=== PATIENT | female | born 1985 | race Native Hawaiian/Other Pacific Islander ===

== ENCOUNTER 2020-06-25 08:54 | Emergency (ER) | payer SELFPAY ==
--- NOTE | 2020-06-25 11:31 | Emergency Department Report ---
<MARTITA MAST - Last Filed: 06/25/20 16:59> ED Abdominal Pain HPI - General Chief Complaint: Urogenital-Female Stated Complaint: PAIN Time Seen by Provider: 06/25/20 10:38 Source: patient Mode of arrival: Ambulatory Limitations: No Limitations - History of Present Illness Initial Comments: Is a very pleasant 34-year-old female presents the emergency department the chief complaint of fever as high as 101.5, dysuria, flank pain, generalized body aches and malaise over the past 2-3 days she denies any known past medical hi story, current medication use or known allergies to medications. Her immunizations are up-to-date. She denies any sick contacts or recent travel. MD Complaint: abdominal pain - Related Data Previous Rx's Medication Instructions Recorded Last Taken Type Nitrofurantoin [place]/M-Cryst 100 mg PO Q12HR 10 Days #20 capsule 06/25/20 Unknown Rx [Macrobid CAP] Allergies Allergy/AdvReac Type Severity Reaction Status Date / Time No Known Allergies Allergy Unverified 06/25/20 09:01 ED Review of Systems Comment: All other systems reviewed and negative Constitutional: see HPI, fever, malaise. denies: chills Eyes: denies: eye pain, eye discharge, vision change ENT: denies: ear pain, throat pain Respiratory: denies: cough, shortness of breath, wheezing Cardiovascular: denies: chest pain, palpitations Endocrine: no symptoms reported Gastrointestinal: abdominal pain, nausea, vomiting. denies: diarrhea Genitourinary: as per HPI, dysuria. denies: urgency, discharge Musculoskeletal: as per HPI, back pain. denies: joint swelling, arthralgia Skin: denies: rash, lesions Neurological: denies: headache, weakness, paresthesias Psychiatric: denies: anxiety, depression Hematological/Lymphatic: denies: easy bleeding, easy bruising ED Past Medical Hx - Past Medical History Previous Medical History?: No - Surgical History Past Surgical History?: No - Medications Home Medications: Home Medications Medication Instructions Recorded Confirmed Last Taken Type Nitrofurantoin [place]/M-Cryst 100 mg PO Q12HR 10 Days #20 capsule 06/25/20 Unknown Rx [Macrobid CAP] ED Physical Exam - General Limitations: No Limitations General appearance: alert, in no apparent distress - Head Head exam: Present: atraumatic, normocephalic - Eye Eye exam: Present: normal appearance, PERRL, EOMI Pupils: Present: normal accommodation - ENT ENT exam: Present: normal exam, normal orophraynx, mucous membranes moist - Neck Neck exam: Present: normal inspection, full ROM. Absent: tenderness, meningismus - Respiratory Respiratory exam: Present: normal lung sounds bilaterally. Absent: respiratory distress, wheezes, rales, rhonchi, stridor - Cardiovascular Cardiovascular Exam: Present: regular rate, normal rhythm, normal heart sounds. Absent: systolic murmur, diastolic murmur, rubs, gallop - GI/Abdominal GI/Abdominal exam: Present: soft, tenderness (TTP To RUQ and epigastrium ), norm al bowel sounds. Absent: distended, guarding, rebound, rigid - Extremities Exam Extremities exam: Present: normal inspection, full ROM, normal capillary refill. Absent: tenderness, calf tenderness - Back Exam Back exam: Present: normal inspection, full ROM, CVA tenderness (R), CVA tenderness (L). Absent: tenderness - Neurological Exam Neurological exam: Present: alert, oriented X3, normal gait - Psychiatric Psychiatric exam: Present: normal affect, normal mood - Skin Skin exam: Present: warm, dry, intact, normal color. Absent: rash ED Medical Decision Making - Lab Data Result diagrams: 06/25/20 12:03 06/25/20 12:03 Lab Results 06/25/20 06/25/20 06/25/20 Range/Units 12:03 12:03 12:03 WBC 5.8 (4.5-11.0) K/mm3 RBC 3.78 (3.65-5.03) M/mm3 Hgb 11.1 (10.1-14.3) gm/dl Hct 33.3 (30.3-42.9) % MCV 88 (79-97) fl MCH 29 (28-32) pg MCHC 33 (30-34) % RDW 13.1 L (13.2-15.2) % Plt Count 235 (140-440) K/mm3 Lymph % (Auto) 13.4 (13.4-35.0) % [place] % (Auto) 11.9 H (0.0-7.3) % Eos % (Auto) 0.5 (0.0-4.3) % Baso % (Auto) 0.3 (0.0-1.8) % Lymph # (Auto) 0.8 L (1.2-5.4) K/mm3 [place] # (Auto) 0.7 (0.0-0.8) K/mm3 Eos # (Auto) 0.0 (0.0-0.4) K/mm3 Baso # (Auto) 0.0 (0.0-0.1) K/mm3 Seg Neutrophils % 73.9 H (40.0-70.0) % Seg Neutrophils # 4.3 (1.8-7.7) K/mm3 Sodium 135 L (137-145) mmol/L Potassium 3.6 (3.6-5.0) mmol/L Chloride 100.4 (98-107) mmol/L Carbon Dioxide 25 (22-30) mmol/L Anion Gap 13 mmol/L BUN 6 L (7-17) mg/dL Creatinine 0.7 (0.6-1.2) mg/dL Estimated GFR > 60 ml/min BUN/Creatinine Ratio 9 % Glucose 61 L (65-100) mg/dL Lactic Acid 0.70 (0.7-2.0) mmol/L Calcium 8.6 (8.4-10.2) mg/dL Total Bilirubin 0.20 (0.1-1.2) mg/dL AST 20 (5-40) units/L ALT 20 (7-56) units/L Alkaline Phosphatase 69 (35-129) units/L Total Protein 6.3 (6.3-8.2) g/dL Albumin 3.4 L (3.9-5) g/dL Albumin/Globulin Ratio 1.2 % Lipase 22 (13-60) units/L Urine Color (Yellow) Urine Turbidity (Clear) Urine pH (5.0-7.0) Ur Specific [place] (1.003-1.030) Urine Protein (Negative) mg/dL Urine Glucose (UA) (Negative) mg/dL Urine Ketones (Negative) mg/dL Urine Blood (Negative) Urine Nitrite (Negative) Urine Bilirubin (Negative) Urine Urobilinogen (<2.0) mg/dL Ur Leukocyte Esterase (Negative) Urine WBC (Auto) (0.0-6.0) /HPF Urine RBC (Auto) (0.0-6.0) /HPF U Epithel Cells (Auto) (0-13.0) /HPF Urine Bacteria (Auto) (Negative) /HPF Urine WBC Clumps /HPF Urine Mucus /HPF Urine HCG, Qual (Negative) 06/25/20 Range/Units 16:00 WBC (4.5-11.0) K/mm3 RBC (3.65-5.03) M/mm3 Hgb (10.1-14.3) gm/dl Hct (30.3-42.9) % MCV (79-97) fl MCH (28-32) pg MCHC (30-34) % RDW (13.2-15.2) % Plt Count (140-440) K/mm3 Lymph % (Auto) (13.4-35.0) % [place] % (Auto) (0.0-7.3) % Eos % (Auto) (0.0-4.3) % Baso % (Auto) (0.0-1.8) % Lymph # (Auto) (1.2-5.4) K/mm3 [place] # (Auto) (0.0-0.8) K/mm3 Eos # (Auto) (0.0-0.4) K/mm3 Baso # (Auto) (0.0-0.1) K/mm3 Seg Neutrophils % (40.0-70.0) % Seg Neutrophils # (1.8-7.7) K/mm3 Sodium (137-145) mmol/L Potassium (3.6-5.0) mmol/L Chloride (98-107) mmol/L Carbon Dioxide (22-30) mmol/L Anion Gap mmol/L BUN (7-17) mg/dL Creatinine (0.6-1.2) mg/dL Estimated GFR ml/min BUN/Creatinine Ratio % Glucose (65-100) mg/dL Lactic Acid (0.7-2.0) mmol/L Calcium (8.4-10.2) mg/dL Total Bilirubin (0.1-1.2) mg/dL AST (5-40) units/L ALT (7-56) units/L Alkaline Phosphatase (35-129) units/L Total Protein (6.3-8.2) g/dL Albumin (3.9-5) g/dL Albumin/Globulin Ratio % Lipase (13-60) units/L Urine Color Yellow (Yellow) Urine Turbidity Cloudy (Clear) Urine pH 5.0 (5.0-7.0) Ur Specific [place] 1.013 (1.003-1.030) Urine Protein 100 mg/dl (Negative) mg/dL Urine Glucose (UA) Neg (Negative) mg/dL Urine Ketones Tr (Negative) mg/dL Urine Blood Sm (Negative) Urine Nitrite Neg (Negative) Urine Bilirubin Neg (Negative) Urine Urobilinogen < 2.0 (<2.0) mg/dL Ur Leukocyte Esterase Lg (Negative) Urine WBC (Auto) > 182.0 H (0.0-6.0) /HPF Urine RBC (Auto) 15.0 (0.0-6.0) /HPF U Epithel Cells (Auto) 2.0 (0-13.0) /HPF Urine Bacteria (Auto) 1+ (Negative) /HPF Urine WBC Clumps 2+ /HPF Urine Mucus Few /HPF Urine HCG, Qual Negative (Negative) - Radiology Data Radiology results: report reviewed, image reviewed XRay Report Signed Patient: LEXII CARRANZA MR#: [id number] : 1985 Acct:[id number] Age/Sex: 34 / F ADM Date: 06/25/20 Loc: ED Attending Dr: Ordering Physician: YOAN KIDD Date of Service: 06/25/20 Procedure(s): XR chest routine 2V Accession Number(s): [id number] cc: YOAN KIDD Fluoro Time In Minutes: CHEST 2 VIEWS INDICATION / CLINICAL INFORMATION: fever. COMPARISON: None available. FINDINGS: SUPPORT DEVICES: None. HEART / MEDIASTINUM: No significant abnormality. LUNGS / PLEURA: No significant pulmonary or pleural abnormality. No pneumothorax. ADDITIONAL FINDINGS: No significant additional findings. IMPRESSION: 1. No acute findings. Signer Name: Simon Wilkes MD Signed: 06/25/2020 2:25 PM Workstation Name: [id number] Transcribed By: TL Dictated By: Simon Wilkes MD Electronically Authenticated By: Simon Wilkes MD Signed Date/Time: 06/25/20 1425 ED Disposition Clinical Impression: Pulmonary nodule less than 6 cm determined by computed tomography of lung UTI (urinary tract infection) Qualifiers: Urinary tract infection type: acute cystitis Hematuria presence: with hematuria Qualified Code(s): N30.01 - Acute cystitis with hematuria Disposition: - TO HOME OR SELFCARE Condition: Stable Instructions: Urinary Tract Infection, Adult, [id number], Incidental Abnormal Radiological Finding Additional Instructions: Incidental finding of her 3 mm pulmonary nodule in the right side has been identified through CT scan. I recommend to you to follow-up with the accounting administrator. Your urine shows that you have a urinary tract infection I would like for you to complete your antibiotics as prescribed. Ibuprofen or Tylenol as needed for pain management. You need to increase your water intake by 3 to 4 L daily. Follow-up with your primary care provider. Prescriptions: Nitrofurantoin [place]/M-Cryst [Macrobid CAP] 100 mg PO Q12HR 10 Days #20 capsule Referrals: PRIMARY CAREMD [Primary Care Provider] - 3-5 Days MARGARITA HERNANDEZ MD [Staff Physician] - 3-5 Days CARYL RICE MD [Staff Physician] - 3-5 Days Forms: Work/School Release Form(ED) <MARIANNA BYRNE - Last Filed: 06/25/20 18:08> ED Abdominal Pain HPI - History of Present Illness Initial Comments: Is a very pleasant 34-year-old female presents the emergency department the chief complaint of fever as high as 101.5, dysuria, flank pain, generalized body aches and malaise over the past 2-3 days she denies any known past medical history, current medication use or known allergies to medications. Her immunizations are up-to-date. She denies any sick contacts or recent travel. Patient was signed out to me by YOAN Swift. CT scan was completed and shows there is incompletely evaluated 3 mm nodule in the middle lobe on right side. Patient will need to follow-up with accounting administrator. Labs show that patient has a urinary tract infection will treat with Macrobid 100 mg p.o. twice daily for 10 days. Patient can take Tylenol or ibuprofen as needed for pain management. Patient needs to increase her water intake by 3 to 4 L daily. Follow-up with a primary care provider as well. ED Review of Systems ROS: Stated complaint: PAIN Other details as noted in HPI ED Course Vital Signs 06/25/20 12:31 Pulse Rate 78 Blood Pressure 114/71 O2 Sat by Pulse 96 Oximetry ED Medical Decision Making - Lab Data Result diagrams: 06/25/20 12:03 06/25/20 12:03 - Radiology Data Referring Physician:MARTITA MASTPatient Name:LEXII CARRANZAPatient ID:[id number] of :2015-26-30Vhs:FemaleAccession:[id number] Date:[id number] Status:Finalized Findings [facility] [address] [place] [address] Cat Scan Report Signed Patient: LEXII CARRANZA MR#: [id number] : 1985 Acct:[id number] Age/Sex: 34 / F ADM Date: 06/25/20 Loc: ED Attending Dr: Ordering Physician: OYAN KIDD Date of Service: 06/25/20 Procedure(s): CT abdomen pelvis w con Accession Number(s): [id number] cc: YOAN KIDD CT ABDOMEN AND PELVIS WITH CONTRAST INDICATION / CLINICAL INFORMATION: RUQ, fever, N/V. TECHNIQUE: Axial CT images were obtained through the abdomen and pelvis after 100 cc Omnipaque [address] scans at this location are performed using CT dose reduction for ALARA by means of automated exposure control. COMPARISON: None available. FINDINGS: LOWER CHEST: Multiple incompletely evaluated noncalcified right middle lobe nodules measure up to 3 mm. No other significant abnormality. LIVER: Subcentimeter right and left hepatic lobe cysts are noted without other significant abnormalities. GALLBLADDER: Collapsed without a distinct abnormality. BILE DUCTS: No significant abnormality. PANCREAS: No significant abnormality. SPLEEN: No significant abnormality. ADRENALS: No significant abnormality. RIGHT KIDNEY / URETER: No significant abnormality. LEFT KIDNEY / URETER: No significant abnormality. STOMACH / SMALL BOWEL: No significant abnormality. COLON: No significant abnormality. APPENDIX: No significant abnormality. PERITONEUM: Small amount free fluid along the pelvis is likely physiologic. No free air. No fluid collection. LYMPH NODES: No significant adenopathy. AORTA / ARTERIES: No significant abnormality. IVC / VEINS: No significant abnormality. URINARY BLADDER: No significant abnormality. REPRODUCTIVE ORGANS: A left ovarian cyst measures 3.2 x 2.4 cm without suspicious features. No other significant abnormality. ADDITIONAL FINDINGS: None. SKELETAL SYSTEM: No significant abnormality. IMPRESSION: 1. No acute abnormality. 2. Incompletely evaluated right middle lobe nodules measuring up to 3 mm. If the patient has pertinent risk factors for malignancy, a follow-up CT of the chest without contrast in one year is recommended. 3. Additional findings as above. Signer Name: Jc Lewis MD Signed: 06/25/2020 5:05 PM Workstation Name: [id number] Transcribed By: MN Dictated By: Jc Lewis MD Electronically Authenticated By: Jc Lewis MD Signed Date/Time: 06/25/201704 DD/ 99 TD/TT: Critical care attestation.: If time is entered above; I have spent that time in minutes in the direct care of this critically ill patient, excluding procedure time. ED Disposition Is pt being admited?: No Does the pt Need Aspirin: No
[2020-06-25] MEDS ORDERED: SODIUM CHLORIDE 0.9% 1000 ML 1,000 ML IV ONE (11:32)
[2020-06-25 12:42] LABS: Basophils % (Auto) 0.3 % (0.0-1.8); Eosinophils % (Auto) 0.5 % (0.0-4.3); Hematocrit 33.3 % (30.3-42.9); Hemoglobin 11.1 gm/dl (10.1-14.3); Lymphocytes # (Auto) 0.8 K/mm3 (1.2-5.4); Lymphocytes % (Auto) 13.4 % (13.4-35.0); Mean Corpuscular HGB Conc 33 % (30-34); Mean Corpuscular Volume 88 fl (79-97); Monocytes # (Auto) 0.7 K/mm3 (0.0-0.8); Monocytes % (Auto) 11.9 % (0.0-7.3); Platelet Count 235 K/mm3 (140-440); Red Blood Count 3.78 M/mm3 (3.65-5.03); Red Cell Distribution Width 13.1 % (13.2-15.2)
[2020-06-25 13:03] LABS: Alanine Aminotransferase 20 units/L (7-56); Albumin 3.4 g/dL (3.9-5); Blood Urea Nitrogen 6 mg/dL (7-17); Calcium 8.6 mg/dL (8.4-10.2); Hemolysis Index 0
[2020-06-25 13:04] LABS: BUN/Creatinine Ratio 9
--- NOTE | 2020-06-25 14:30 | XRay Report ---
CHEST 2 VIEWS INDICATION / CLINICAL INFORMATION: fever. COMPARISON: None available. FINDINGS: SUPPORT DEVICES: None. HEART / MEDIASTINUM: No significant abnormality. LUNGS / PLEURA: No significant pulmonary or pleural abnormality. No pneumothorax. ADDITIONAL FINDINGS: No significant additional findings. IMPRESSION: 1. No acute findings. Signer Name: Simon Wilkes MD Signed: 06/25/2020 2:25 PM Workstation Name: [id number]
[2020-06-25 16:33] LABS: Bacteria,Urine 1+ /HPF (Negative); Bilirubin,Urine NEG (Negative); Blood,Urine SM (Negative); Color,Urine Yellow (Yellow); Mucus,Urine FEW /HPF; Urobilinogen,Urine < 2.0 mg/dL (<2.0)
[2020-06-25 16:38] LABS: WBC,Urine > 182.0 /HPF (0.0-6.0)
[2020-06-25 16:41] LABS: HCG Qualitative,Urine Negative (Negative)
[2020-06-25] MEDS ORDERED: cefTRIAXone/NS 2 GM/100 ML 2 GM/100 ML BAG IV ONE (16:47)
--- NOTE | 2020-06-25 17:10 | Cat Scan Report ---
CT ABDOMEN AND PELVIS WITH CONTRAST INDICATION / CLINICAL INFORMATION: RUQ, fever, N/V. TECHNIQUE: Axial CT images were obtained through the abdomen and pelvis after 100 cc Omnipaque [address] scans at this location are performed using CT dose reduction for ALARA by means of automated exposure control. COMPARISON: None available. FINDINGS: LOWER CHEST: Multiple incompletely evaluated noncalcified right middle lobe nodules measure up to 3 m m. No other significant abnormality. LIVER: Subcentimeter right and left hepatic lobe cysts are noted without other significant abnormalit ies. GALLBLADDER: Collapsed without a distinct abnormality. BILE DUCTS: No significant abnormality. PANCREAS: No significant abnormality. SPLEEN: No significant abnormality. ADRENALS: No significant abnormality. RIGHT KIDNEY / URETER: No significant abnormality. LEFT KIDNEY / URETER: No significant abnormality. STOMACH / SMALL BOWEL: No significant abnormality. COLON: No significant abnormality. APPENDIX: No significant abnormality. PERITONEUM: Small amount free fluid along the pelvis is likely physiologic. No free air. No fluid col lection. LYMPH NODES: No significant adenopathy. AORTA / ARTERIES: No significant abnormality. IVC / VEINS: No significant abnormality. URINARY BLADDER: No significant abnormality. REPRODUCTIVE ORGANS: A left ovarian cyst measures 3.2 x 2.4 cm without suspicious features. No other significant abnormality. ADDITIONAL FINDINGS: None. SKELETAL SYSTEM: No significant abnormality. IMPRESSION: 1. No acute abnormality. 2. Incompletely evaluated right middle lobe nodules measuring up to 3 mm. If the patient has pertinen t risk factors for malignancy, a follow-up CT of the chest without contrast in one year is recommende d. 3. Additional findings as above. Signer Name: Jc Lewis MD Signed: 06/25/2020 5:05 PM Workstation Name: [id number]
[2020-06-25 18:29] VITALS: BP 122/60
== END 2020-06-25 18:27 | disposition home or self-care (01) ==
LOC: ED 08:54
DX: N39.0 Urinary tract infection, site not specified (principal)
CPT/HCPCS: 36415; 71046; 74177; 80053; 81001; 81025; 82140; 83690; 85025; 96361; 96365; 99284; J0696; J7030; Q9967